=== PATIENT | female | born 1965 | race Caucasian/White ===

== ENCOUNTER → 2022-03-31 | Outpatient (CLI) | payer OTHER | LOC: M WHC 08:23 | PROVIDERS: ATTEND Physician Assistant | DX: Z12.31 Encounter for screening mammogram for malignant neoplasm of breast (principal); R92.2 Inconclusive mammogram ==

== ENCOUNTER → 2022-04-13 | Outpatient (CLI) | payer OTHER | LOC: M PLAIMG 14:21 → EDUNIT# 14:30 | PROVIDERS: ATTEND Nurse Practitioner | DX: R51.9 Headache, unspecified (principal) ==